=== PATIENT | male | born 1995 | race Caucasian/White ===

== ENCOUNTER 2022-11-08 15:07 | Emergency (ER) | payer SELFPAY ==
[2022-11-08] MEDS ORDERED: IBUPROFEN 400 MG TAB ONE (15:50)
[2022-11-08] MEDS ORDERED: IBUPROFEN 200 MG TAB PO ONE (15:50)
--- NOTE | 2022-11-08 16:31 | RAD REPORT ---
EXAM DESCRIPTION: RAD - Wrist Left 3 View - 11/08/2022 3:56 pm CLINICAL HISTORY: PAIN COMPARISON: No comparisons TECHNIQUE: Left wrist, 3 views. FINDINGS: No acute fracture. There is no dislocation or periosteal reaction noted. No suspicious bon y finding. No foreign body or other soft tissue abnormality. IMPRESSION: Negative left wrist examination.
--- NOTE | 2022-11-08 16:35 | ER ---
Nurse's Notes [facility] Name: Cruzito Blanco Age: 26 yrs Sex: Male : 1995 Arrival Date: 11/08/2022 Time: 15:07 Bed 12 Private MD: Diagnosis: Other specified sprain of left wrist Presentation: 11/08 15:14 Chief complaint: Patient states: "I fell on my wrist yesterday". pt c/o pain to left aa5 wrist. Coronavirus screen: At this time, the client does not indicate any symptoms associated with coronavirus-19. Ebola Screen: Patient denies travel to an Ebola-affected area in the 21 days before illness onset. Initial Sepsis Screen: Does the patient meet any 2 criteria? No. Patient's initial sepsis screen is negative. Does the patient have a suspected source of infection? No. Patient's initial sepsis screen is negative. Risk Assessment: Do you want to hurt yourself or someone else? Patient reports no desire to harm self or others. Onset of symptoms was November 07, 2022. 15:14 Method Of Arrival: Ambulatory aa5 15:14 Acuity: GINO 4 aa5 Triage Assessment: 16:40 General: Appears in no apparent distress. Behavior is calm, cooperative. iw Historical: - Allergies: 15:14 Risperdal; aa5 15:14 trazodone (bulk); aa5 15:14 tramadol; aa5 - Home Meds: 15:14 None [Active]; aa5 - PMHx: 15:14 None; aa5 - PSHx: 15:14 Appendectomy; aa5 - Immunization history:: Adult Immunizations unknown. - Social history:: Smoking status: Patient reports the use of cigarette tobacco products, smokes one pack cigarettes per day. Screenin:05 [facility] ED Fall Risk Assessment (Adult) Score/Fall Risk Level 0 - 2 = Low Risk. Abuse iw screen: Denies threats or abuse. Denies injuries from another. Nutritional screening: No deficits noted. Tuberculosis screening: No symptoms or risk factors identified. Assessment: 16:40 General: Appears in no apparent distress. Behavior is calm, cooperative. Pain: iw Complains of pain in left arm and left wrist. Neuro: Level of Consciousness is awake, alert, obeys commands, Oriented to person, place, time, situation, Moves all extremities. Cardiovascular: Patient's skin is warm and dry. Respiratory: Respiratory effort is even, unlabored, Respiratory pattern is regular, symmetrical. Musculoskeletal: Range of motion: intact in all extremities. Vital Signs: 15:14 BP 141 / 91; Pulse 85; Resp 18 S; Temp 98.2(TE); Pulse Ox 100% on R/A; Weight 90.72 kg aa5 (R); Height 6 ft. 2 in. (R); 15:14 Body Mass Index 25.68 (90.72 kg, 187.96 cm) aa5 ED Course: 15:11 Patient arrived in ED. im 15:12 Sanjuana Kaur FNP-C [facility]. kb 15:12 Leonard Woodruff DO is Attending Physician. kb 15:14 Triage completed. aa5 15:15 Arm band placed on. aa5 15:58 Wrist Left (3 View) XRAY In Process Unspecified. EDMS 16:40 Patient has correct armband on for positive identification. iw 16:41 Janet Mack, RN is Primary Nurse. iw 17:07 No provider procedures requiring assistance completed. Patient did not have IV access iw during this emergency room visit. Administered Medications: 15:39 Not Given (Pt states he took ibuprofen 2 hours ago): Ibuprofen PO 600 mg PO once aa5 16:51 Drug: Ketorolac IM 30 mg Route: IM; Site: left deltoid; iw 17:00 Follow up: Response: No adverse reaction iw Medication: 16:51 VIS not applicable for this client. iw Outcome: 16:34 Discharge ordered by MD. kb 17:07 Discharged to home ambulatory. iw 17:07 Condition: good 17:07 Discharge instructions given to patient, Instructed on discharge instructions, follow up and referral plans. Demonstrated understanding of instructions, follow-up care. 17:08 Patient left the ED. iw Signatures: Dispatcher [employer] EDMS Sanjuana Kaur FNP-C FNP-Janet Thomas RN RN iw Meenakshi Bolivar RN RN aa5 Karen Whiteside im
--- NOTE | 2022-11-08 16:35 | EDPHYS ---
Physician Documentation [facility] Name: Cruzito Blanco Age: 26 yrs Sex: Male : 1995 Arrival Date: 11/08/2022 Time: 15:07 Bed 12 Private MD: ED Physician Leonard Woodruff HPI: 11/08 15:33 This 26 yrs old Male presents to ER via Ambulatory with complaints of Wrist Injury. kb 15:33 The patient or guardian reports injury, pain, swelling, tenderness. The complaints kb affect the left wrist diffusely. Context: The problem was sustained at home, resulted from a fall. Onset: The symptoms/episode began/occurred yesterday. Modifying factors: The symptoms are alleviated by nothing, the symptoms are aggravated by movement. Associated signs and symptoms: The patient has no apparent associated signs or symptoms. The patient has not experienced similar symptoms in the past. The patient has not recently seen a physician. Pt reports he fell onto left hand yesterday. c/o left wrist pain. Historical: - Allergies: 15:14 Risperdal; aa5 15:14 trazodone (bulk); aa5 15:14 tramadol; aa5 - Home Meds: 15:14 None [Active]; aa5 - PMHx: 15:14 None; aa5 - PSHx: 15:14 Appendectomy; aa5 - Immunization history:: Adult Immunizations unknown. - Social history:: Smoking status: Patient reports the use of cigarette tobacco products, smokes one pack cigarettes per day. ROS: 15:32 Constitutional: Negative for fever, chills, and weight loss. kb 15:32 MS/extremity: Positive for pain, swelling, tenderness, of the left wrist. 15:32 All other systems are negative. Exam: 15:32 Constitutional: This is a well developed, well nourished patient who is awake, alert, kb and in no acute distress. Head/Face: Normocephalic, atraumatic. ENT: Moist Mucous membranes Cardiovascular: Regular rate Respiratory: Respirations even and unlabored. No increased work of breathing. Talking in full sentences Skin: Warm, dry with normal turgor. Normal color. Neuro: Awake and alert, GCS 15, oriented to person, place, time, and situation. Moves all extremities. Normal gait. 15:32 Musculoskeletal/extremity: Extremities: grossly normal except: noted in the left wrist: pain, swelling, tenderness, ROM: limited active range of motion due to pain, in the left wrist, Circulation is intact in all extremities. Sensation intact. Vital Signs: 15:14 BP 141 / 91; Pulse 85; Resp 18 S; Temp 98.2(TE); Pulse Ox 100% on R/A; Weight 90.72 kg aa5 (R); Height 6 ft. 2 in. (R); 15:14 Body Mass Index 25.68 (90.72 kg, 187.96 cm) aa5 MDM: 15:12 Patient medically screened. kb 15:33 Differential diagnosis: dislocation, closed fracture, sprain. Data reviewed: vital kb signs, nurses notes. 16:34 Counseling: I had a detailed discussion with the patient and/or guardian regarding the kb historical points, exam findings, and any diagnostic results supporting the discharge/admit diagnosis, radiology results, the need for outpatient follow up, a orthopedic surgeon, to return to the emergency department if symptoms worsen or persist or if there are any questions or concerns that arise at home. 11/08 15:14 Order name: Wrist Left (3 View) XRAY; Complete Time: 16:34 kb Administered Medications: 15:39 Not Given (Pt states he took ibuprofen 2 hours ago): Ibuprofen PO 600 mg PO once aa5 16:51 Drug: Ketorolac IM 30 mg Route: IM; Site: left deltoid; iw 17:00 Follow up: Response: No adverse reaction iw Disposition: 16:39 Co-signature as Attending Physician, Leonard Woodruff DO I was immediately available on-site ms3 in the Emergency Department for consultation in the care of the patient. Disposition Summary: 11/08/22 16:34 Discharge Ordered Location: Home kb Condition: Stable kb Diagnosis - Other specified sprain of left wrist kb Followup: kb - With: Emergency Department - When: As needed - Reason: Worsening of condition Followup: kb - With: Private Physician - When: 2 - 3 days - Reason: Recheck today's complaints, Continuance of care, Re-evaluation by your physician Discharge Instructions: - Discharge Summary Sheet kb - Wrist Sprain, Adult kb Forms: - Medication Reconciliation Form kb - Thank You Letter kb - Antibiotic Education kb - Prescription Opioid Use kb - Patient Portal Instructions kb - Leadership Thank You Letter kb Signatures: Dispatcher [employer] Sanjuana Sanabria, MEAT MANAGER-C MEAT MANAGER-CkJanet Bocanegra, RN RN iw Meenakshi Bolivar RN RN aa5 Leonard Woodruff DO DO ms3
[2022-11-08] MEDS ORDERED: KETOROLAC 30 MG/ML INJ ONE (16:58)
[2022-11-08 17:13] VITALS: BP 141/91; TEMP 98.2; O2SAT 100
== END 2022-11-08 17:08 | disposition home or self-care (01) ==
LOC: ER 15:07
DX: S63.592A Other specified sprain of left wrist, initial encounter (principal)
CPT/HCPCS: 96372; 99284